=== PATIENT | male | born 1990 | race Caucasian/White ===

== ENCOUNTER 2024-02-04 17:53 | Emergency (ER) | payer OTHER ==
[2024-02-04 18:03] VITALS: BP 137/83; PULSE 95; RESP 18; TEMP 98.4; BMI 23.5
[2024-02-04] MEDS ORDERED: MECLIZINE HCL 25 MG TABLET (FP) ONE (18:32)
[2024-02-04] MEDS ORDERED: ACETAMINOPHEN INJECTION 100 ML IVPB ONE (18:32)
[2024-02-04] MEDS: MECLIZINE HCL 25 MG TABLET (FP) PO ONE (19:36)
[2024-02-04] MEDS: SODIUM CHLORIDE 0.9% 1000 ML INFUS.BAG IV ONE (19:36)
[2024-02-04] MEDS: FLUTICASONE PROP 0.05% 16 GM NASAL SPRAY NS ONE (19:36)
[2024-02-04] MEDS: ACETAMINOPHEN 1000 MG/100 ML BAG IVPB ONE (19:37)
[2024-02-04 19:54] LABS: BASO % 0.4 % (0-2.0); EOS % 1.5 % (0-4.5); HEMATOCRIT 40.3 % (35.4-49); HEMOGLOBIN 13.8 GM/dL (11.7-16.9); MCH 30.9 pg (25.7-33.7); MCHC 34.2 g/dl (32.0-35.9); MEAN CELL VOLUME 90.3 fl (80-96); MONO % 6.9 % (3.8-10.2); NEUT % 54.2 % (42.8-82.8); PLATELET COUNT 219 10^3/uL (134-434); RBC 4.46 M/mm3 (4.00-5.60); RDW 13.1 % (11.9-15.9); WHITE BLOOD COUNT 6.5 K/mm3 (4.0-10.0)
[2024-02-04 20:15] LABS: ALBUMIN 3.7 g/dl (3.4-5.0); BLOOD UREA NITROGEN 20.6 mg/dL (7-18)
[2024-02-04 20:18] LABS: CREATININE 0.6 mg/dL (0.55-1.3)
[2024-02-04 20:20] LABS: BILIRUBIN,TOTAL 0.4 mg/dL (0.2-1)
[2024-02-04] MEDS ORDERED: PSEUDOEPHEDRINE HCL 30 MG TABLET PO ONE (21:40)
== END 2024-02-04 22:32 | disposition home or self-care (01) ==
LOC: JER 17:53
PROC: 3E033NZ Introduction of Analgesics, Hypnotics, Sedatives into Peripheral Vein, Percutaneous Approach (ICD-10-PCS; principal; 2024-02-04)
DX: R51.9 Headache, unspecified (principal); R42 Dizziness and giddiness; J32.9 Chronic sinusitis, unspecified; H93.8X1 Other specified disorders of right ear; Z20.822 Contact with and (suspected) exposure to COVID-19
CPT/HCPCS: 0241U-QW; 36415; 70450-TC; 70486-TC; 80053; 84484; 85025; 93005; 93010; 99285-25; J0131

== ENCOUNTER 2024-03-15 18:47 | Emergency (ER) | payer OTHER ==
[2024-03-15 18:57] VITALS: BP 118/77; PULSE 86; RESP 18; TEMP 98; BMI 21.9
[2024-03-15] MEDS ORDERED: BACITRACIN 0.9 GM PACKET ONE (19:52)
[2024-03-15] MEDS ORDERED: morphine SULFATE 4 MG/ML VIAL ONE (19:52)
[2024-03-15] MEDS: morphine CARPU-JECT 4 MG/1 ML DISP.SYRIN IVPUSH ONE (20:04)
[2024-03-15] MEDS ORDERED: BACITRACIN ZINC 15 GM TUBE TOPICAL OINTMENT ONE (20:44)
[2024-03-15] MEDS: BACITRACIN 0.9 GM PACKET TP ONE (20:50)
== END 2024-03-15 20:56 | disposition home or self-care (01) ==
LOC: JER 18:47
PROC: 3E030GC Introduction of Other Therapeutic Substance into Peripheral Vein, Open Approach (ICD-10-PCS; principal; 2024-03-15)
DX: T22.011A Burn of unspecified degree of right forearm, initial encounter (principal); T23.001A Burn of unspecified degree of right hand, unspecified site, initial encounter; T23.021A Burn of unspecified degree of single right finger (nail) except thumb, initial encounter; X10.2XXA Contact with fats and cooking oils, initial encounter
CPT/HCPCS: 99284-25

== ENCOUNTER 2024-05-28 16:30 | Emergency (ER) | payer OTHER ==
[2024-05-28 16:37] VITALS: RESP 18; BMI 23.5
[2024-05-28] MEDS ORDERED: LIDOCAINE VISCOUS 2% ORAL/TOP 15 ML UNIT-DOSE CUP ONE (20:55)
[2024-05-28] MEDS ORDERED: MAG HYDROX/AL HYDROX/SIMETH 30 ML UNIT-DOSE CUP ONE (20:55)
[2024-05-28] MEDS ORDERED: ONDANSETRON 4 MG/2 ML VIAL ONE (20:56)
[2024-05-28] MEDS ORDERED: FAMOTIDINE 20 MG/50 ML IVPB 20 MG/50 ML MG IVPB ONE (20:56)
[2024-05-28] MEDS: MAG HYDROX/AL HYDROX/SIMETH 30 ML UNIT-DOSE CUP PO ONE (21:14)
[2024-05-28] MEDS: FAMOTIDINE 20 MG/50 ML IVPB 20 MG/50 ML MG IVPB ONE (21:14)
[2024-05-28] MEDS: SODIUM CHLORIDE 0.9% 500 ML INFUS.BAG IV ONE (21:14)
[2024-05-28] MEDS: LIDOCAINE VISCOUS 2% ORAL/TOP 15 ML UNIT-DOSE CUP MM ONE (21:14)
[2024-05-28] MEDS: ONDANSETRON 4 MG/2 ML VIAL IVPUSH ONE (21:15)
[2024-05-28 21:20] LABS: BASO % 0.4 % (0-2.0); EOS % 2.2 % (0-4.5); HEMATOCRIT 41.6 % (35.4-49); HEMOGLOBIN 14.2 GM/dL (11.7-16.9); LYMPH % 50.5 % (8-40); MCH 30.9 pg (25.7-33.7); MCHC 34.1 g/dl (32.0-35.9); MEAN CELL VOLUME 90.8 fl (80-96); MEAN PLT VOLUME 9.6 fl (7.5-11.1); MONO % 7.7 % (3.8-10.2); NEUT % 39.2 % (42.8-82.8); PLATELET COUNT 145 10^3/uL (134-434); RBC 4.58 M/mm3 (4.00-5.60); WHITE BLOOD COUNT 5.6 K/mm3 (4.0-10.0)
[2024-05-28 21:21] LABS: URINE APPEARANCE CLEAR; URINE BILIRUBIN NEGATIVE (NEGATIVE); URINE COLOR YELLOW; URINE GLUCOSE (UA) NEGATIVE (NEGATIVE); URINE KETONE NEGATIVE (NEGATIVE); URINE LEUK ESTERASE NEGATIVE (NEGATIVE); URINE NITRITE NEGATIVE (NEGATIVE); URINE PROTEIN NEGATIVE (NEGATIVE)
[2024-05-28 21:40] LABS: POTASSIUM 4.4 mmol/L (3.5-5.1)
[2024-05-28 21:43] LABS: CALCIUM 9.2 mg/dL (8.5-10.1)
[2024-05-28 21:44] LABS: BLOOD UREA NITROGEN 17.6 mg/dL (7-18)
[2024-05-28 21:46] LABS: CREATININE 0.6 mg/dL (0.55-1.3)
[2024-05-28 21:48] LABS: BILIRUBIN,TOTAL 0.5 mg/dL (0.2-1); TOT PROT 7.4 g/dl (6.4-8.2)
[2024-05-28 23:27] VITALS: BP 105/72; PULSE 67; TEMP 97.7
== END 2024-05-29 00:03 | disposition home or self-care (01) ==
LOC: JER 16:30
PROC: 3E033GC Introduction of Other Therapeutic Substance into Peripheral Vein, Percutaneous Approach (ICD-10-PCS; principal; 2024-05-28)
PROC: 3E033GC Introduction of Other Therapeutic Substance into Peripheral Vein, Percutaneous Approach (ICD-10-PCS; 2024-05-28)
DX: R10.13 Epigastric pain (principal); R10.32 Left lower quadrant pain; R11.0 Nausea
CPT/HCPCS: 36415; 74177-TC; 76705-TC; 80053; 81003; 83690; 85025; 87086; 99285-25; Q9967

== ENCOUNTER 2024-09-15 16:32 | Emergency (ER) | payer OTHER ==
[2024-09-15 17:06] VITALS: BP 130/70; PULSE 89; RESP 18; TEMP 97.5; BMI 24.2
[2024-09-15] MEDS ORDERED: DEXAMETHASONE SOD PHOSPHATE 10 MG/1 ML VIAL ONE (18:02)
[2024-09-15] MEDS ORDERED: ACETAMINOPHEN 500 MG TABLET (FP) ONE (18:02)
[2024-09-15] MEDS: DEXAMETHASONE SOD PHOSPHATE 10 MG/1 ML VIAL PO ONE (18:10)
[2024-09-15] MEDS: ACETAMINOPHEN 500 MG TABLET (FP) PO ONE (18:10)
== END 2024-09-15 18:48 | disposition home or self-care (01) ==
LOC: JER 16:32 → JERFT 16:32
DX: J02.9 Acute pharyngitis, unspecified (principal); R09.82 Postnasal drip
CPT/HCPCS: 87651; 99283-25; J1100